=== PATIENT | female | born 1965 | race Caucasian/White ===

== ENCOUNTER 2018-12-14 02:11 | Emergency (ER) | payer OTHER ==
[2018-12-14 04:29] LABS: ABSOLUTE BASOPHILS # (AUTO) 0.1 10^3/uL (0.0-0.2); ABSOLUTE EOSINOPHILS # (AUTO) 0.3 10^3/uL (0.0-0.6); ABSOLUTE LYMPHOCYTES (AUTO) 2.2 10^3/uL (0.5-4.7); ABSOLUTE MONOCYTES (AUTO) 0.5 10^3/uL (0.1-1.4); ABSOLUTE NEUT (AUTO) 4.7 10^3/uL (1.7-8.2); BASOPHILS % (AUTO) 0.8 % (0-2); EOSINOPHILS % (AUTO) 3.3 % (0-6); HEMATOCRIT 41.6 % (36.0-47.0); HEMOGLOBIN 14.4 g/dL (12.0-15.5); LYMPHOCYTES % (AUTO) 28.1 % (13-45); MEAN CORPUSCULAR HEMOGLOBIN 32.7 pg (27.0-33.4); MEAN CORPUSCULAR HGB CONC 34.6 g/dL (32.0-36.0); MEAN CORPUSCULAR VOLUME 95 fl (80-97); MONOCYTES % (AUTO) 7.1 % (3-13); PLATELET COUNT 285 10^3/uL (150-450); RED CELL DISTRIBUTION WIDTH 13.8 % (11.5-14.0); SEGMENTED NEUTROPHILS % (AUTO) 60.7 % (42-78); TOTAL CELLS COUNTED % (AUTO) 100 %; WHITE BLOOD COUNT 7.7 10^3/uL (4.0-10.5)
[2018-12-14 04:49] LABS: ANION GAP 8 (5-19); BLOOD UREA NITROGEN 12 mg/dL (7-20); CALCIUM 9.9 mg/dL (8.4-10.2); CARBON DIOXIDE 29 mmol/L (22-30); CHLORIDE 106 mmol/L (98-107); GLUCOSE 101 mg/dL (75-110); POTASSIUM 4.3 mmol/L (3.6-5.0); SODIUM 142.9 mmol/L (137-145)
[2018-12-14 05:11] LABS: TROPONIN I < 0.012 ng/mL
--- NOTE | 2018-12-14 07:25 | RADIOLOGY REPORT (SQ) ---
EXAM DESCRIPTION: XR CHEST 2 VIEWS COMPLETED DATE/TME: 12/14/2018 00:00 CLINICAL HISTORY: pain COMPARISON: None. FINDINGS: Frontal and lateral views of the chest. Leads overlie the chest. The cardiomediastinal silhouette has normal size and contour. No consolidation, pneumothorax, or pleural effusion. No displaced rib fractures identified. Upper abdominal soft tissues are unremarkable. IMPRESSION: 1. No acute pulmonary process identified.
--- NOTE | 2018-12-14 09:08 | ER Document Report ---
ED General - General Chief Complaint: Chest Pain Stated Complaint: CHEST PAIN Time Seen by Provider: 12/14/18 07:17 Notes: Patient is a 53-year-old female presents to the emergency department complaints of left chest pressure more so in her left armpit. Patient states she was sleeping when this pain awoke her. Patient states that is intermittent in nature but denies any shortness of breath, diaphoresis, vomiting. Patient states she does not recall if the pain increased upon inspiration or movement. States she does recall that if she pushed on her armpit the pain was better. Patient states she currently does not have any chest pain or pressure. Past medical history: None Medications: None Allergies: None Last menstrual period at age 44 Surgical history: None Patient states the last time she saw her primary care provider was within a year. TRAVEL OUTSIDE OF THE [place] IN LAST 30 DAYS: No - Related Data Allergies/Adverse Reactions: No Known Allergies Allergy (Verified 12/14/18 07:16) Past Medical History - General Information source: Patient - Social History Smoking Status: Never Smoker Family History: Reviewed & Not Pertinent Patient has suicidal ideation: No Patient has homicidal ideation: No Renal/ Medical History: Denies: Hx Peritoneal Dialysis GI Medical History: Reports: Hx Gastroesophageal Reflux Disease Review of Systems - Review of Systems Constitutional: No symptoms reported EENT: No symptoms reported Cardiovascular: See HPI Respiratory: See HPI Gastrointestinal: No symptoms reported Genitourinary: No symptoms reported Female Genitourinary: No symptoms reported Musculoskeletal: See HPI Skin: No symptoms reported Hematologic/Lymphatic: No symptoms reported Neurological/Psychological: No symptoms reported Physical Exam - Vital signs Vitals: Temp Pulse Resp BP Pulse Ox 97.7 F 75 16 151/75 H 100 12/14/18 03:11 12/14/18 03:11 12/14/18 03:11 12/14/18 03:11 12/14/18 03:11 - Notes Notes: GENERAL: Alert, interacts well. No acute distress. HEAD: Normocephalic, atraumatic. EYES: Pupils equal, round, and reactive to light. Extraocular movements intact. ENT: Oral mucosa moist, tongue midline. NECK: Full range of motion. Supple. Trachea midline. LUNGS: Clear to auscultation bilaterally, no wheezes, rales, or rhonchi. No respiratory distress. Chest: No crepitus felt, no erythema or ecchymosis noted anterior posterior chest wall. No abnormalities noted to the left axillary region. HEART: Regular rate and rhythm. No murmur ABDOMEN: Soft, non-tender. Non-distended. Bowel sounds present in all 4 quadrants. EXTREMITIES: Moves all 4 extremities spontaneously. No edema, normal radial and dorsalis pedis pulses bilaterally. No cyanosis. BACK: no cervical, thoracic, lumbar midline tenderness. No saddle anesthesia, normal distal neurovascular exam. NEUROLOGICAL: Alert and oriented x3. Normal speech. cranial nerves II through XII grossly intact PSYCH: Normal affect, normal mood. SKIN: Warm, dry, normal turgor. No rashes or lesions noted. Course - Re-evaluation Re-evalutation: 12/14/18 09:06 Patient's initial EKG shows a rate of 72, QTc 443, no ST segment elevations or depressions noted. Patient's initial and delta troponin were both negative. Patient's lab work is unremarkable at this time. Upon my evaluation of the patient she states she has been chest pain/armpit pain free for the last couple of hours. Discussed close follow-up with primary care provider and cardiology. Patient is currently a 1 on the heart score due to her age. Vitals stable, stable for discharge. - Vital Signs Vital signs: Temp Pulse Resp BP Pulse Ox 97.8 F 75 17 132/89 H 100 12/14/18 06:58 12/14/18 03:11 12/14/18 08:01 12/14/18 08:01 12/14/18 08:01 - Laboratory Result Diagrams: 12/14/18 04:10 12/14/18 04:10 Discharge - Discharge Clinical Impression: Chest pain Qualifiers: Chest pain type: unspecified Qualified Code(s): R07.9 - Chest pain, unspecified Condition: Stable Disposition: HOME, SELF-CARE Instructions: Chest Pain of Unclear Cause ([facility]), Chest Wall Pain ([facility]) Additional Instructions: As we discussed you have been seen and treated in the emergency department for your generalized chest and left armpit pain. At this time your labs reveal no signs of abnormalities. 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 Phone numbers will be provided in this packet. Please immediately chart return to the emergency room should you develop chest pain again. Referrals: HUNTER ALONZO MD [ACTIVE STAFF] - Follow up as needed
[2018-12-14 09:22] VITALS: BP 146/82
--- NOTE | 2018-12-14 12:45 | EKG REPORT ---
SEVERITY:- NORMAL ECG - SINUS RHYTHM : Confirmed by: Carla Long 14-Dec-2018 12:44:13
--- NOTE | 2018-12-15 20:11 | EKG REPORT ---
SEVERITY:- NORMAL ECG - SINUS RHYTHM : Confirmed by: Carla Long 15-Dec-2018 20:10:15
== END 2018-12-14 09:22 | disposition home or self-care (01) ==
LOC: ER 02:11
DX: R07.89 Other chest pain (principal)
CPT/HCPCS: 36415; 71046; 80048; 82553; 84484; 85025; 93005; 93010; 99284